=== PATIENT | female | born 1950 | race Caucasian/White ===

== ENCOUNTER → 2019-08-17 | Outpatient (CLI) | payer MEDICARE, OTHER ==
--- NOTE | 2019-08-17 11:42 | RAD ---
BONE DENSITY AXIAL HISTORY: Post menopausal screening. TECHNIQUE: Dual energy x-ray absorptiometry of the lumbar spine and both hips was performed. T-score of average bone mineral density based was calculated based on standard deviations above or below the expected young adult normal value. Diagnostic definitions were established by the [employer]. FINDINGS: The average bone mineral density associated with L1-L4 is 1.197 mg/cm^2, corresponding with a T-score of 0.1. The average total bone mineral density associated with right total femur is 0.879 g/cm^2, corresponding with a T-score of -0.6. No comparison examinations are available. Refer to the worksheets for full detail. IMPRESSION: 1. Normal bone mineral density. Electronically signed by: Isreal Hdz DO (08/17/2019 11:39 AM) [facility]
--- NOTE | 2019-08-23 18:47 | RAD ---
DATE: 08/17/2019 10:50 AM EXAM: MAMMO [facility] SCREENING BILATERAL HISTORY: Scattered COMPARISON: 06/27/2017 Bilateral CC and MLO views of the breasts were performed. Bilateral breast tomosynthesis was performed in CC and MLO projections. This study was interpreted with the benefit of Computerized Aided Detection (CAD). FINDINGS: Breast Density: SCATTERED The breast parenchyma shows scattered fibroglandular densities. Breast parenchyma level B No suspicious masses, microcalcifications or architectural distortion is present to suggest malignancy in either breast. The visualized axillae are unremarkable. IMPRESSION: No mammographic evidence of malignancy. BI-RADS CATEGORY: 1 NEGATIVE RECOMMENDED FOLLOW-UP: 12M 12 MONTH FOLLOW-UP Annual screening mammography is recommended, unless clinically indicated sooner based on symptoms or change in physical exam. PQRS compliance statement: Patient information was entered into a reminder system with a target due date 08/17/2020 for the next mammogram. Mammography is a sensitive method for finding small breast cancers, but it does not detect them all and is not a substitute for careful clinical examination. A negative mammogram does not negate a clinically suspicious finding and should not result in delay in biopsying a clinically suspicious abnormality. "Our facility is accredited by the [employer] Mammography Program."
== END | disposition home or self-care (01) ==
LOC: DXRAD 10:30
PROVIDERS: ATTEND Family Medicine
DX: Z12.31 Encounter for screening mammogram for malignant neoplasm of breast (principal); Z13.820 Encounter for screening for osteoporosis; R29.890 Loss of height; Z78.0 Asymptomatic menopausal state
CPT/HCPCS: 77063; 77067; 77080

== ENCOUNTER → 2019-09-06 | Outpatient (CLI) | payer MEDICARE ==
[~2019-09-06] MED LIST: IOHEXOL 240 MG/ML 50ML VIAL. ONE; IOHEXOL 300 MG/ML 75 ML VIAL. IV ONE
[2019-09-06 14:06] LABS: CREATININE 0.9 mg/dL (0.6-1.0); GFR 62.1
--- NOTE | 2019-09-06 15:32 | RAD ---
CT abdomen and pelvis with contrast History: Left lower quadrant pain Technique: After the administration of intravenous contrast, CT imaging was performed of the abdomen and pelvis. Oral contrast was also given. Multiplanar images are reviewed. Exposure: One or more of the following individualized dose reduction techniques were utilized for this examination: 1. Automated exposure control 2. Adjustment of the mA and/or kV according to patient size 3. Use of iterative reconstruction technique. Comparison: There is no previous similar exam available, correlation made with chest CTA May 31, 2012. Findings: There is some motion degradation. There is no abnormality of the limited visualized lung bases. There is hepatic steatosis. Gallbladder is present without obvious intraluminal abnormality by CT. No focal abnormality is identified of the pancreas or spleen. There is 1.7 cm hypodense lesion of the posterior right lobe liver with internal density measurements of a cyst. There is no adrenal nodularity. Both kidneys enhance. There is mild bilateral hydronephrosis although no hydroureter on either side, findings likely at least in part present previously. There is 0.5 cm inferior left renal calculus. There are phleboliths in the bilateral pelvis. The bowel is not significantly dilated. There is no free fluid or free air. Normal caliber appendix is visualized without significant adjacent inflammatory-type change. There is retained stool greater of the cecum. There is facet degenerative change greater inferiorly of the lumbar spine. There is fairly severe degenerative disc disease at L2-3 and L5-S1, to lesser degree L3-4 and L4-5. There is sclerotic change of the L2-3 endplates more likely reactive/degenerative in etiology, minimal superior plate concavity of L3. There is some variable lateral recess and is of the lumbar spine. Impression: 1. There is mild bilateral hydronephrosis without hydroureter believed to be chronic, could be associated with chronic UPJ obstruction. There is small inferior left renal calculus. 2. There is hepatic steatosis. There is small hepatic cyst. Electronically signed by: Harry Wei MD (09/06/2019 3:29 PM) [id number]
== END | disposition home or self-care (01) ==
LOC: CT 13:32
PROVIDERS: ATTEND Family Medicine
DX: K76.0 Fatty (change of) liver, not elsewhere classified (principal); N13.30 Unspecified hydronephrosis; N20.0 Calculus of kidney; M51.37 Other intervertebral disc degeneration, lumbosacral region; K76.89 Other specified diseases of liver
CPT/HCPCS: 36415; 74177; 82565; 84520; Q9967